=== PATIENT | female | born 1950 | race Two or more races ===

== ENCOUNTER 2020-10-07 17:34 | Inpatient (IN) | payer OTHER ==
[~2020-10-07] VITALS: Ht 144.8 cm; Wt 54.0 kg
[2020-10-07] MEDS ORDERED: LEVO-T25 MCG (17:45)
[2020-10-07] MEDS ORDERED: LETROZOLE2.5 MG (17:45)
[2020-10-08] MEDS ORDERED: GABAPENTIN100 M2 (15:19)
[2020-10-08] MEDS ORDERED: BUDESONIDE-FO10.2 G1 (15:19)
== END 2020-10-17 16:26 | disposition home or self-care (01) | DRG 188 ==
LOC: ER 17:34 → MEDJ 10-08 10:55
PROVIDERS: Radiology Vascular & Interventional Radiology; ADMIT Internal Medicine; ATTEND Internal Medicine
PROC: 3E0F7SF Introduction of Other Gas into Respiratory Tract, Via Natural or Artificial Opening (ICD-10-PCS; 2020-10-08)
PROC: BW24ZZZ Computerized Tomography (CT Scan) of Chest and Abdomen (ICD-10-PCS; 2020-10-08)
PROC: B54DZZZ Ultrasonography of Bilateral Lower Extremity Veins (ICD-10-PCS; 2020-10-08)
PROC: 0W9930Z Drainage of Right Pleural Cavity with Drainage Device, Percutaneous Approach (ICD-10-PCS; principal; 2020-10-10 17:30)
DX: J90 Pleural effusion, not elsewhere classified (principal); R09.02 Hypoxemia; R06.03 Acute respiratory distress; D49.3 Neoplasm of unspecified behavior of breast